=== PATIENT | female | born 1960 | race Caucasian/White ===

== ENCOUNTER 2017-01-02 02:04 | Inpatient (IN) | payer MEDICAID ==
[~2017-01-02] VITALS: Ht 162.6 cm; Wt 74.5 kg
[2017-01-02] MEDS ORDERED: LORazepam 2 MG TABLET PO PRN (04:15)
[2017-01-02] MEDS ORDERED: ZOLPIDEM TARTRATE 10 MG TABLET PO PRN (04:15)
[2017-01-02] MEDS ORDERED: QUEtiapine FUMARATE 100 MG TABLET PO PRN (04:15)
[2017-01-02] MEDS ORDERED: PNEUMOCOCCAL VACCINE POLYVALENT 0.5 ML VIAL [PPSV23] IM ONE (06:00)
[2017-01-02 06:15] VITALS: BP 128/79
[2017-01-02] MEDS ORDERED: INFLUENZA VIRUS VACCINE QVS 2017-18 (3YR+)/PF 60 MCG/0.5 ML SYRINGE IM ONE (06:15)
[2017-01-02 06:19] VITALS: BP 128/79
[2017-01-02] MEDS ORDERED: VIST50 PO (07:42)
[2017-01-02] MEDS ORDERED: QUET100T PO (07:42)
[2017-01-02] MEDS ORDERED: FLUO-191 PO (07:42)
[2017-01-02 08:43] VITALS: BP 110/68
[2017-01-02] MEDS: FLUoxetine HCL 20 MG CAPSULE PO SCH (16:14)
[2017-01-02] MEDS: HydrOXYzine PAMOATE 25 MG CAPSULE PO PRN (16:14)
[2017-01-02 16:18] VITALS: BP 112/69
[2017-01-02 18:00] VITALS: BP 112/69
[2017-01-02] MEDS ORDERED: QUEtiapine FUMARATE 25 MG TABLET PO SCH (21:00)
[2017-01-02] MEDS ORDERED: QUET25TA PO (21:40)
[2017-01-03 08:14] VITALS: BP 125/75
[2017-01-03] MEDS: FLUoxetine HCL 20 MG CAPSULE PO SCH (08:28)
[2017-01-03] MEDS: HydrOXYzine PAMOATE 25 MG CAPSULE PO PRN (09:48)
[2017-01-03 09:54] VITALS: BP 125/75
[2017-01-03] MEDS ORDERED: ACETAMINOPHEN 325 MG TABLET PO PRN (15:00)
[2017-01-03] MEDS ORDERED: IBUPROFEN 400 MG TABLET PO PRN (15:00)
== END 2017-01-03 13:30 | disposition home or self-care (01) | DRG 751 ==
LOC: EDSTATUS 02:06 → B3A 04:11 → EDSEX 04:11
PROVIDERS: ADMIT Psychiatry & Neurology Psychiatry; ATTEND Psychiatry & Neurology Psychiatry
DX: F33.2 Major depressive disorder, recurrent severe without psychotic features (principal); R45.851 Suicidal ideations; F15.20 Other stimulant dependence, uncomplicated; I10 Essential (primary) hypertension; Z28.21 Immunization not carried out because of patient refusal; G89.4 Chronic pain syndrome; F41.9 Anxiety disorder, unspecified; M54.9 Dorsalgia, unspecified; Z63.9 Problem related to primary support group, unspecified; Z88.1 Allergy status to other antibiotic agents; Z88.0 Allergy status to penicillin; Z88.8 Allergy status to other drugs, medicaments and biological substances; Z72.89 Other problems related to lifestyle
CPT/HCPCS: 90471